=== PATIENT | male | born 1955 ===

== ENCOUNTER → 2020-02-17 20:11 | Outpatient (CLI) | payer MEDICARE ==
[2020-02-17 20:55] LABS: BILIRUBIN NEGATIVE (NEGATIVE); KETONE NEGATIVE (NEGATIVE); NITRITE NEGATIVE (NEGATIVE); UROBILINOGEN NORMAL mg/dL (< 2)
== END | disposition home or self-care (01) ==
LOC: D.LABREF 20:11
PROVIDERS: ATTEND Family Medicine
DX: N18.6 End stage renal disease (principal); N40.0 Benign prostatic hyperplasia without lower urinary tract symptoms; Z90.5 Acquired absence of kidney